=== PATIENT | female | born 1970 | race Hispanic/Latino ===

== ENCOUNTER 2024-03-18 06:27 | Emergency (ER) | payer OTHER ==
[~2024-03-18] VITALS: Ht 149.9 cm; Wt 97.5 kg
--- NOTE | 2024-03-18 06:56 | ERN ---
General Chief Complaint: Back Pain-No Injury Stated Complaint: C/O LT LOWER BACK PAIN RADIATING TO LT LOWER ABD Time Seen by MD: 06:42 Source: patient History of Present Illness Initial Comments PATIENT IS A 53-YEAR-OLD FEMALE COMING IN TO BE EVALUATED FOR LEFT FLANK PAIN. PATIENT STATES THAT THE PAIN BEGAN TWO DAYS AGO HAS BEEN GETTING WORSE. PATIENT LOCALIZES THE PAIN TO THE LEFT FLANK REGION RADIATING TO THE LEFT GROIN REGION. PATIENT STATES THAT THE PAIN IS 10/10 Allergies: Coded Allergies: No Known Allergies (Unverified Allergy, Unknown, 03/18/24) Past Medical History Past Medical History: No Pertinent History Past Surgical History: Appendectomy, Cholecystectomy, Other Surgical History Other: HERNIA REPAIR, GASTRIC SLEEVE; GASTRIC BYPASS ROS Dictation CONSTITUTIONAL: NO CHILLS, NO FEVER, NO WEAKNESS, NO DIAPHORESIS, NO MALAISE. HEAD/FACE: NO SIGNS OF TRAUMA. EENT: NO EYE PAIN, NO BLURRED VISION, NO TEARING, NO DOUBLE VISION, NO EAR PAIN, NO EAR DISCHARGE, NO NOSE PAIN, NO NASAL CONGESTION, NO THROAT PAIN, NO THROAT SWELLING, NO MOUTH PAIN. RESPIRATORY: NO COUGH, NO ORTHOPNEA, NO SOB, NO STRIDOR, NO WHEEZING. CARDIOVASCULAR: NO CHEST PAIN, NO EDEMA, NO PALPITATIONS, NO SYNCOPE. GASTROINTESTINAL/ABDOMINAL: ABDOMINAL PAIN, NO CONSTIPATION, NO DIARRHEA, NO NAUSEA, NO VOMITING. GENITOURINARY: NO ABNORMAL DISCHARGE, NO DYSURIA, NO FREQUENT URINATION, NO HEMATURIA. NO COMPLAINTS OF PAIN IN THE GENITALS. MUSCULOSKELETAL: NO BACK PAIN, NO GOUT, NO JOINT PAIN, NO JOINT SWELLING, NO MUSCLE PAIN, NO MUSCLE STIFFNESS, NO NECK PAIN. INTEGUMENTARY: NO CHANGE IN COLOR, NO CHANGE IN HAIR/NAILS, NO DRYNESS, NO LESION, NO LUMPS, NO RASH. NEUROLOGICAL/PSYCH: NO ANXIETY, NOT DEPRESSED, NO EMOTIONAL PROBLEM, NO HEADACHE, NO NUMBNESS, NO PRE-EXISTING DEFICIT, NO HISTORY OF SEIZURES, NO TREMORS, NO WEAKNESS. HEMATOLOGIC/LYMPHATIC: NOT ANEMIC, NO HISTORY OF BLOOD CLOTS, NO APPARENT BLEEDING, NO BRUISING, GLANDS NOT SWOLLEN. ALL SYSTEMS NEGATIVE, EXCEPT NOTED. Physical Exam Physical Exam Dictation VITAL SIGNS: REVIEWED. GENERAL APPEARANCE: ALERT, ORIENTED X3, NO ACUTE DISTRESS, OBESE. HEAD AND FACE: NON-TRAUMATIC. EYES: PERRL, PINK CONJUNCTIVAS, EYELID NO TRAUMA, ANTERIOR CHAMBER CLEAR. EARS: PINNAS INTACT AND NO SIGNS OF TRAUMA OR ERYTHEMA. EAR CANALS CLEAR AND NO DISCHARGE. TMS NO ERYTHEMA. NOSE: NO DISCHARGE, NO BLEEDING. OROPHARYNX: MOUTH NORMAL, TEETH NO CARIES, TONGUE PINK. PHARYNX CLEAR, NO ERYTHEMA. TONSILS NO EXUDATES, NO ABSCESSES NOTED. MUCOUS MEMBRANE MOIST. NECK: SUPPLE, NON-TENDER, NO THYROMEGALY, NO MASSES, NO JVD, NO BRUITS. BREAST: DEFERRED. CHEST: NO TENDERNESS, NO CREPITUS, NO PARADOXICAL MOVEMENT, NO RETRACTIONS. LUNGS: CLEAR, WELL-VENTILATED, SYMMETRIC, NO RALES, NO WHEEZING, NO RHONCHI, NO STRIDOR, GOOD BREATH SOUNDS BILATERALLY. HEART: REGULAR RATE, REGULAR RHYTHM, NO MURMUR, NO GALLOPS. VASCULAR: NO PERIPHERAL EDEMA. ABDOMEN: SOFT, POSITIVE BOWEL SOUNDS, NONDISTENDED, NO GUARDING, LEFT CVA ANGLE TENDERNESS, NO REBOUND, NO MASSES NO HEPATOMEGALY, NO SPLENOMEGALY, NO SOTO'S SIGN, NO HERNIAS. RECTAL: DEFERRED. GENITAL: DEFERRED. NEUROLOGICAL: NORMAL SPEECH, GROSS MOTOR FUNCTION INTACT, GROSS SENSORY FUNCTION INTACT. MUSCULOSKELETAL: NECK NONTENDER, FULL RANGE OF MOTION, BACK NONTENDER, FULL RANGE OF MOTION. EXTREMITIES: NONTENDER, FULL RANGE OF MOTION. SKIN: COLOR PINK, DRY, NO TURGOR, NO RASH, NO LACERATIONS, NO ABRASIONS, NO CONTUSIONS. LYMPHATICS: DEFERRED. Results Laboratory and Microbiology Lab and Micro Result Laboratory Tests Test 03/18/24 07:16 03/18/24 08:00 Urine Color YELLOW (YELLOW) Urine Appearance SL CLOUDY (CLEAR) Urine pH 5.5 (5.0-8.0) Urine Specific [place] 1.022 (1.001-1.031) Urine Protein NEGATIVE mg/dL (NEGATIVE) Urine Glucose (UA) NEGATIVE mg/dL (NEGATIVE) Urine Ketones NEGATIVE mg/dL (NEGATIVE) Urine Occult Blood MODERATE (NEGATIVE) H Urine Nitrate NEGATIVE (NEGATIVE) Urine Bilirubin NEGATIVE mg/dL (NEGATIVE) Urine Urobilinogen 0.2 mg/dL (0.2-1.0) Urine Leukocyte Esterase SMALL [place]/uL (NEGATIVE) H Urine RBC 2-5 /HPF (0-1) H Urine WBC 6-10 /HPF (0-1) H Urine Squamous Epithelial Cells 6-10 /HPF (0-2) Urine Bacteria Moderate /HPF (None Seen) H White Blood Count 9.1 K/uL (4.8-10.8) Red Blood Count 4.18 MIL/uL (4.00-5.50) Hemoglobin 12.6 g/dL (12.0-16.0) Hematocrit 38.5 % (36-48) Mean Corpuscular Volume 92.1 fL (79-99) Mean Corpuscular Hemoglobin 30.1 pg (27.0-33.0) Mean Corpuscular Hemoglobin Concent 32.7 g/dL (32.0-36.0) Red Cell Distribution Width 12.8 % (11.0-15.5) Platelet Count 243 K/uL (130-400) Mean Platelet Volume 10.2 fL (7.5-10.5) Immature Granulocyte % (Auto) 0.3 % (0-1) Neutrophils (%) (Auto) 76.2 % (40.0-77.0) Lymphocytes (%) (Auto) 17.6 % (21.0-51.0) L Monocytes (%) (Auto) 5.2 % (3.0-13.0) Eosinophils (%) (Auto) 0.4 % (0.0-8.0) Basophils (%) (Auto) 0.3 % (0.0-5.0) Neutrophils # (Auto) 6.9 K/uL (1.8-7.7) Lymphocytes # (Auto) 1.6 K/uL (1.0-4.8) Monocytes # (Auto) 0.5 K/uL (0.1-1.0) Eosinophils # (Auto) 0.04 K/uL (0.00-0.70) Basophils # (Auto) 0.03 K/uL (0.00-0.20) Absolute Immature Granulocyte (auto 0.03 K/uL (0-1) Nucleated Red Blood Cells 0.0 % (0.0-0.19) Sodium Level 139 mmol/L (136-145) Potassium Level 3.4 mmol/L (3.5-5.1) L Chloride Level 101 mmol/L (101-111) Carbon Dioxide Level 31 mmol/L (21-32) Blood Urea Nitrogen 10 mg/dL (7-18) Creatinine 0.8 mg/dL (0.5-1.0) Glomerular Filtration Rate Calc 89 mL/min (>90) Random Glucose 89 mg/dL (70-105) Total Calcium 8.7 mg/dL (8.5-10.1) MDM MDM: DIFFERENTIAL DIAGNOSIS: RATIONALE: TESTS CONSIDERED AND ORDERED SECONDARY TO SHARED DECISION MAKING INCLUDE: PREVIOUS OUTSIDE RECORDS REVIEWED: OLD ER VISITS. RISK OF COMPLICATION AND/OR MORBIDITY OR MORTALITY OF PATIENT MANAGEMENT: NONE MEDICATIONS-PER MEDICATION RECONCILIATION NEED FOR HOSPITALIZATION: PATIENT DOES MEET CRITERIA FOR HOSPITALIZATION. NEED FOR EMERGENCY MAJOR/MINOR SURGERY: NO THERE ARE NO SOCIAL CONCERNS WITH THIS PATIENT. PRESCRIPTION DRUG MANAGEMENT PRESCRIPTIONS WILL INCLUDE SYMPTOMATIC CARE PATIENT'S PRIOR EXTERNAL MEDICAL RECORDS FROM OTHER ER VISITS WERE REVIEWED BY ME INDICATED. PRIOR TESTING AND RESULTS FROM PREVIOUS VISITS WERE REVIEWED. PRIOR TESTS WERE TAKEN INTO ACCOUNT WITH MEDICAL DECISION MAKING AND RESOURCE UTILIZATION, INDEPENDENT HISTORIAN/HISTORIANS WERE USED TO OBTAIN COMPLETE MEDICAL HISTORY. I INDEPENDENTLY INTERPRETED THE TEST THAT WERE PERFORMED, RESULTS WERE REVIEWED BY ME AND CONSIDERED FINDINGS ON RADIOLOGY IF ORDERED. MEDICAL MANAGEMENT AND EXAMINATION INTERPRETATION DISCUSSIONS WERE HAD BY ME WITH OTHER QUALIFIED HEALTHCARE PROFESSIONALS INDICATED FOR THE PATIENT'S CARE. Dr. Duran: I took over care at 7:00 a.m. CC: Left flank pain Diagnosis: Left kidney stone. I independently reviewed the CT scan of the abdomen and pelvis without contrast which shows a kidney stone at the UVJ. Mild hydronephrosis. Confirmed by radiologist. Patient has some lab work is unremarkable including renal function. No significant leukocytosis. Urinalysis does have some bacteria, we will treat with antibiotics. I interviewed the patient again. She still has mild pain but overall is much improved. She received IV Toradol, IV morphine, IV Rocephin here in the ER. Also IV fluid bolus. She is p.o. tolerant nontoxic in appearance. She can follow up as an outpatient regarding her symptoms. I have discharged with recommendation for ibuprofen. Prescriptions for [place] tabs, tamsulosin, Zofran, cefpodoxime. We will recommend urology follow up as an outpatient. Patient has not from the area, she has a follow up care when she goes home after the holidays. ED Course Orders Procedure Category Date Status Time Cbc With Differential LAB 03/18/24 Complete 06:32 Basic Metabolic Panel LAB 03/18/24 Complete 06:32 Urinalysis LAB 03/18/24 Complete W/Microscopic 06:32 0.9%Nacl 1000ml (Ns PHA 03/18/24 Complete 1000ml) 07:00 Ketorolac PHA 03/18/24 Complete Tromethamine 15mg/Ml 07:00 Ct Abdomen/Pelvis W/O CT 03/18/24 Resulted Contrast 06:32 Pantoprazole 40mg Inj PHA 03/18/24 Complete (Protonix 40mg Inj 07:00 Ondansetron 4mg Inj PHA 03/18/24 Complete (Zofran 4mg Inj) 08:30 Culture Urine TERENCE 03/18/24 In Process 09:14 Morphine 4mg Syg PHA 03/18/24 In Process (Morphine 4mg Syg) 09:30 Ceftriaxone 1g Vial PHA 03/18/24 In Process (Rocephine 1g Inj) 09:30 Current Medications Medications (Trade) Dose Ordered Sig/Marilou Route PRN Reason Start Time Stop Time Status Last Admin Dose Admin Ceftriaxone Sodium (ROCEphine 1G INJ) 1 gm ONCE ONCE IVPB 03/18/24 09:30 03/18/24 09:31 UNV Ketorolac Tromethamine (toRADol) 15 mg ONCE ONCE IV 03/18/24 07:00 03/18/24 07:01 DC 03/18/24 07:26 Morphine Sulfate (morPHINE 4MG SYG) 4 mg ONCE ONCE IVP 03/18/24 09:30 03/18/24 09:31 UNV Ondansetron HCl (zoFRAN 4MG INJ) 4 mg ONCE ONCE IVP 03/18/24 08:30 03/18/24 08:31 DC 03/18/24 08:17 Pantoprazole Sodium (PROTonix 40MG INJ) 40 mg ONCE ONCE IVP 03/18/24 07:00 03/18/24 07:01 DC 03/18/24 07:26 Sodium Chloride 1,000 ml @ 0 mls/hr ONCE ONCE IV 03/18/24 07:00 03/18/24 07:01 DC 03/18/24 07:25 Vital Signs Date Time Temp Pulse Resp B/P (MAP) Pulse Ox O2 Delivery O2 Flow Rate FiO2 03/18/24 08:00 98.1 80 18 130/79 98 Room Air* 0 21 03/18/24 06:32 97.9 63 20 166/95 96 Room Air DX & DISP Disposition: Discharge Departure Impression: Primary Impression: Left renal stone Condition: Stable Scripts Hydrocodone/Acetaminophen (Hydrocodon-Acetaminophen 5-325) 5 Mg-325 Mg Tablet 1 TAB PO Q6HPRN PRN for pain for 5 Days, #20 TAB 0 Refills Prov: LISET SARGENT DO 03/18/24 Tamsulosin HCl (Flomax) 0.4 Mg Cap.er.24h 0.4 MG PO DAILY for 30 Days, #30 CAPSULE.DR Prov: LISET SARGENT DO 03/18/24 Ondansetron (Ondansetron Odt) 4 Mg Tab.rapdis 1 TAB PO Q6HPRN PRN for nausea/vomiting for 5 Days, #15 TAB 0 Refills Prov: LISET SARGENT DO 03/18/24 Cefpodoxime Proxetil (Cefpodoxime Proxetil) 200 Mg Tablet 200 MG PO BID for 7 Days, #20 TAB Prov: LISET SARGENT DO 03/18/24 Additional Instructions: You have a 5 mm kidney stone at the left ureterovesical junction. This is causing your pain. Your vital signs have been stable here in the emergency department. Your blood work ( CBC, BMP ) shows no abnormalities. the urinalysis shows blood and bacteria consistent with your condition. The CT scan of your abdomen and pelvis shows a kidney stone but no other abnormalities. For pain, I recommend that you use both ibuprofen and [place] tabs. I recommend taking 600 mg of ibuprofen every 6 hours as needed for pain or inflammation. This medication is [id number]. In addition, you can take a [place] tab for severe pain every 6 hours as needed. Avoid drinking alcohol or driving with this medication. I have prescribed cefpodoxime, which is an antibiotic. Take twice per day for the next seven days. Complete the full course even if your symptoms improve. I have prescribed ondansetron dissolvable tabs to use as needed for nausea or vomiting. You can take one of these 3 times per day as needed. I have prescribed tamsulosin which helps relax the muscles in your urinary tract making it easier to pass the stone. Take a tab daily at night time. This is a medication make some people dizzy. Take this medication until you pass the stone. I recommend you drink at least 2-3 L of water daily to help flush the stone out. Avoid high sodium foods. Limit animal protein (red meat, chicken and fish). Stay active to encourage stone movement. Please return to the emergency department if you develop any high fever, worsening pain despite medication, persistent vomiting, or difficulty urinating. I recommend he schedule an appointment with her primary doctor. You may need a urology follow up in 1-2 weeks to monitor your progress. If you have any concerning symptoms please immediately return to the emergency department. Referrals: SELF,REFERRAL (PCP) JEZ VALDOVINOS MD Mar 18, 2024 06:56 LISET SARGENT DO Mar 18, 2024 09:35
[2024-03-18] MEDS: 0.9%NACL 1000ML 1,000 ML IV ONE (07:25)
[2024-03-18] MEDS: PANTOPrazole 40 MG/VIAL IVP ONE (07:26)
[2024-03-18] MEDS: ketOROlac 15MG/ML VIAL (15MG/ML) IV ONE (07:26)
[2024-03-18] MEDS: ondanSETRON 4MG INJ IVP ONE (08:17)
[2024-03-18 08:30] LABS: APPEARANCE,URINE SL CLOUDY (CLEAR); BILIRUBIN,URINE NEGATIVE (NEGATIVE); COLOR,URINE YELLOW (YELLOW); GLUCOSE, URINE (UA) NEGATIVE (NEGATIVE); KETONES,URINE NEGATIVE (NEGATIVE); LEUKOCYTE ESTERASE ,URINE SMALL Leu/uL (NEGATIVE); NITRATE,URINE NEGATIVE (NEGATIVE); OCCULT BLOOD,URINE MODERATE (NEGATIVE); PH,URINE 5.5 (5.0-8.0); PROTEIN,URINE NEGATIVE (NEGATIVE); UROBILINOGEN,URINE 0.2 mg/dL (0.2-1.0)
[2024-03-18 08:33] LABS: BASOPHILS # (AUTO) 0.03 K/uL (0.00-0.20); BASOPHILS % (AUTO) 0.3 % (0.0-5.0); EOSINOPHILS # (AUTO) 0.04 K/uL (0.00-0.70); EOSINOPHILS % (AUTO) 0.4 % (0.0-8.0); HEMATOCRIT 38.5 % (36-48); IMMATURE GRANULOCYTE ABSOLUTE 0.03 K/uL (0-1); LYMPHOCYTES # (AUTO) 1.6 K/uL (1.0-4.8); LYMPHOCYTES % (AUTO) 17.6 % (21.0-51.0); MEAN CORPUSCULAR HEMOGLOBIN 30.1 pg (27.0-33.0); MEAN CORPUSCULAR HGB CONC 32.7 g/dL (32.0-36.0); MEAN CORPUSCULAR VOLUME 92.1 fL (79-99); MONOCYTES # (AUTO) 0.5 K/uL (0.1-1.0); MONOCYTES % (AUTO) 5.2 % (3.0-13.0); NEUTROPHILS # (AUTO) 6.9 K/uL (1.8-7.7); NEUTROPHILS % (AUTO) 76.2 % (40.0-77.0); PLATELET COUNT (AUTO) 243 K/uL (130-400); RED BLOOD CELL COUNT(AUTO) 4.18 MIL/uL (4.00-5.50); RED CELL DISTRIBUTION WIDTH 12.8 % (11.0-15.5); WHITE BLOOD COUNT (AUTO) 9.1 K/uL (4.8-10.8)
[2024-03-18 08:34] LABS: CREATININE 0.8 mg/dL (0.5-1.0); POTASSIUM 3.4 mmol/L (3.5-5.1)
[2024-03-18 09:14] LABS: BACTERIA,URINE Moderate /HPF (None Seen)
--- NOTE | 2024-03-18 09:18 | HMCIMG ---
CT ABDOMEN WITHOUT CONTRAST. CT PELVIS WITHOUT CONTRAST. INDICATION: Left flank pain TECHNIQUE: Routine transaxial imaging using 5 mm slice thickness through the abdomen and pelvis without the administration of IV contrast. Thin slice reconstructions are also provided. Coronal and sagittal reformatted images acquired for interpretation. CT was performed with one or more of the following dose reduction techniques: Automated exposure control, adjustment of the mA and/or kV according to patient size, or use of iterative reconstruction technique. COMPARISON: None FINDINGS: ON NONCONTRAST IMAGING: ABDOMEN: Heart size is normal. Visible lung bases are clear. Gastric bypass surgery changes. No abnormal right renal calcifications, hydronephrosis, perinephric inflammation, or proximal hydroureter detected. 5 mm left ureterovesicular junction calculus contributing to mild left hydroureteronephrosis. Small simple bilateral renal cysts. The liver is normal in size and smooth in contour without biliary duct dilation. The spleen is normal in size and attenuation. The gallbladder his absent. The pancreas appears normal without pancreatic duct dilation. The adrenal glands appear normal. No significant abdominal, retrocrural or retroperitoneal adenopathy noted. No evidence for intra-abdominal free air or organized fluid collection. No aortic aneurysmal dilation identified. PELVIS: No abnormal calcifications within the urinary bladder or distal ureters. No evidence for free air or organized pelvic fluid collection. No significant pelvic adenopathy detected. Visualized small and large bowel loops appear unremarkable. Terminal ileum appears unremarkable. The appendix is not well-visualized. Visible osseous structures are intact. IMPRESSION: 5 mm left ureterovesicular junction calculus contributing to mild left hydroureteronephrosis.
[2024-03-18] MEDS ORDERED: ONDA-243 PO (09:33)
[2024-03-18] MEDS ORDERED: HYDR-4060 PO (09:33)
[2024-03-18] MEDS ORDERED: TAMS-1 PO (09:33)
[2024-03-18] MEDS ORDERED: CEFP200T14 PO (09:33)
[2024-03-18] MEDS: morPHINE 4 MG SYG IVP ONE (09:52)
[2024-03-18] MEDS: cefTRIAXone 1G VIAL IVPB ONE (09:53)
--- NOTE | 2024-03-18 09:53 | NUR ---
MORPHINE & ROCEPHINE PATIENT DECLINED MEDICATIONS.SHE IS BEING DISCHARGED AND WANTS TO TAKE THE ORAL ONES.
[2024-03-18 09:57] VITALS: BP 110/57; PULSE 60; RESP 18; TEMP 98; O2SAT 96
== END 2024-03-18 10:12 | disposition home or self-care (01) ==
LOC: EDH 06:27
DX: N13.2 Hydronephrosis with renal and ureteral calculous obstruction (principal); Z90.49 Acquired absence of other specified parts of digestive tract; Z98.84 Bariatric surgery status; Z98.890 Other specified postprocedural states
CPT/HCPCS: 99285; 74176; 96374; 96375; 96361; 80048; 85025; 87086; 81001; 36415; J7030; J2405; J2470; J1885; 87186; J0696; J2270